=== PATIENT | female | born 1975 | race Two or more races ===

== ENCOUNTER 2017-04-29 12:09 | Emergency (ER) | payer SELFPAY ==
[2017-04-29] MEDS ORDERED: ONDANSETRON 4 MG/2 ML VIAL IVP ONE (12:34)
--- NOTE | 2017-04-29 12:34 | EDPHY ---
H & P Time Seen by Provider: 04/29/17 12:23 HPI/ROS: CHIEF COMPLAINT: Headache, vomiting HISTORY OF PRESENT ILLNESS: The patient is a 42-year-old female with a history of migraines to the emergency department with ongoing headache. Her symptoms started 3 days ago. They have been persistent. This is typical of her migraine headaches. She describes diffuse pain. It is moderate to severe. It is exacerbated by light and noise. No episodes of nausea and vomiting. She denies any focal weakness or numbness. No recent trauma. She has taken ibuprofen for pain. Patient states that her blood pressure has been slightly elevated over the past 2 weeks. REVIEW OF SYSTEMS: My complete review of systems is negative except as mentioned in the HPI. Past Medical/Surgical History: Includes migraines social history Social history: The patient does not smoke. Smoking Status: Never smoked Physical Exam: Vitals noted GENERAL: Mild acute distress, alert. HEENT: Eyes normal to inspection, normal pharynx, no signs of dehydration. NECK: No thyromegaly, no lymphadenopathy, supple. RESPIRATORY: Clear to auscultation bilaterally, no rales, rhonchi or wheezing. CVS: Regular rate and rhythm, no rubs, murmurs, or gallops. ABDOMEN: Soft, nontender, nondistended, no organomegaly. BACK: Normal to inspection, no CVA tenderness. SKIN: Normal color, no rash, warm, dry. No pallor. EXTREMITIES: No pedal edema, no calf tenderness, no Homans sign or cords, no joint swelling. NEURO/PSYCH: Higher functions: Alert and Oriented x3. Normal speech and cognition. Normal mood and affect. Cranial nerves: Normal as tested. Cerebellar: Normal as tested. Good finger to nose, good [id number], normal gait. Peripheral exam: Normal motor exam. Normal sensation. Normal reflexes. Constitutional: Initial Vital Signs Temperature (C) 36.6 C 04/29/17 12:13 Heart Rate 82 04/29/17 12:13 Respiratory Rate 17 04/29/17 12:13 Blood Pressure 148/92 H 04/29/17 12:13 O2 Sat (%) 97 04/29/17 12:13 O2 Delivery Mode Room Air Allergies/Adverse Reactions: No Known Allergies Allergy (Unverified 04/29/17 12:12) Home Medications: Medication Instructions Recorded AMOXICILLIN 04/29/17 Hydrocodone/APAP 5/325 [[place] 1 - 2 tab PO Q4 #13 tab 04/29/17 5/325 (RX)] Omeprazole 04/29/17 Ondansetron Odt [Zofran Odt 4 mg 4 mg PO Q4PRN PRN #7 tab 04/29/17 (*)] Medical Decision Making - Diagnostics Imaging Results: Imaging Impressions Head CT 04/29/17 13:07 Impression: 1. No significant intracranial abnormality seen. If symptoms worsen, additional imaging may be necessary. Findings discussed with Ayana Chavez M.D. at 13:35 hour, 04/29/2017. ED Course/Re-evaluation: Emergency department I discussed possible etiologies with the patient. I answered all her questions. IV was placed. Patient was given Solu-Medrol 125 mg IV, fentanyl 50 mcg IV and Zofran 4 mg IV. On recheck the patient states her pain is improved. She still is feeling nauseated and dizzy. She was given Reglan [address]: Please refer the dictated report. No acute disease noted. I discussed the result with the patient. 1413: I rechecked the patient. She had no complaints. Her headache is completely gone. She has no focal neurologic deficits. I gave the patient warnings prior to leaving. She will return with worsening symptoms. Differential Diagnosis: My differential includes but is not limited to migraine, ischemic CVA, hemorrhagic CVA, dissection, aneurysm - Data Points Medications Given: Discontinued Medications Fentanyl (Sublimaze) 50 mcg IVP EDNOW ONE Stop: 04/29/17 12:36 Last Admin: 04/29/17 12:43 Dose: 50 mcg Methylprednisolone Sodium Succinate (Solu-Medrol) 125 mg IVP EDNOW ONE Stop: 04/29/17 12:36 Last Admin: 04/29/17 12:42 Dose: 125 mg Metoclopramide HCl (Reglan Injection) 10 mg IVP EDNOW ONE Stop: 04/29/17 13:08 Last Admin: 04/29/17 13:11 Dose: 10 mg Ondansetron HCl (Zofran) 4 mg IVP EDNOW ONE Stop: 04/29/17 12:35 Last Admin: 04/29/17 12:43 Dose: 4 mg Departure - Departure Disposition: Home, Routine, Self-Care Clinical Impression: Dizziness Headache Qualifiers: Headache type: unspecified Headache chronicity pattern: acute headache Intractability: not intractable Qualified Code(s): R51 - Headache Condition: Good Instructions: Acute Headache (ED) Additional Instructions: Return with increasing headache, weakness, numbness, repeated vomiting, fever or any other concerns. Referrals: [facility] [Other] - 1-2 days without fail Prescriptions: Hydrocodone/APAP 5/325 [[place] 5/325 (RX)] 1 - 2 tab PO Q4 #13 tab Ondansetron Odt [Zofran Odt 4 mg (*)] 4 mg PO Q4PRN PRN #7 tab PRN Reason: For Nausea & Vomiting
[2017-04-29] MEDS ORDERED: fentaNYL 100 MCG/2 ML INJ IVP ONE (12:35)
[2017-04-29] MEDS ORDERED: methylPREDNISolone SOD SUCC 125 MG/2 ML VIAL IVP ONE (12:35)
[2017-04-29] MEDS ORDERED: METOCLOPRAMIDE 10 MG/2 ML VIAL IVP ONE (13:07)
[2017-04-29 14:26] VITALS: BP 129/72; PULSE 74; RESP 16; TEMP 97.7; O2SAT 93
== END 2017-04-29 14:25 | disposition home or self-care (01) ==
DX: R51 Headache (principal); R42 Dizziness and giddiness
CPT/HCPCS: 96374; J2405; J2765; J3010

== ENCOUNTER 2018-05-01 17:39 | Emergency (ER) | payer SELFPAY ==
[2018-05-01] MEDS ORDERED: ACETAMINOPHEN 500 MG TAB PO ONE (18:34)
--- NOTE | 2018-05-01 18:48 | EDPHY ---
H & P Stated Complaint: ST/FEVER Time Seen by Provider: 05/01/18 18:48 HPI/ROS: CHIEF COMPLAINT: Sore throat, fever, chills HISTORY OF PRESENT ILLNESS: The patient presents the ED with a one-week history of sore throat, fever and chills. The patient complains of a mild frontal headache. She denies any neck stiffness. She does complain of generalized myalgias. The patient reports associated nausea. She denies any vomiting or diarrhea. The patient has no significant past medical history. REVIEW OF SYSTEMS: A comprehensive 10 point review of systems is otherwise negative aside from elements mentioned in the history of present illness. Source: Patient, Family Exam Limitations: No limitations - Personal History LMP (Females 10-55): Irregular Current Tetanus Diphtheria and Acellular Pertussis (TDAP): Yes - Medical/Surgical History Hx Asthma: No Hx Chronic Respiratory Disease: No Hx Diabetes: No Hx Cardiac Disease: No Hx Renal Disease: No Hx Cirrhosis: No Hx Alcoholism: No Hx HIV/AIDS: No Hx Splenectomy or Spleen Trauma: No Other PMH: MIGRAINES/THROAT - Social History Smoking Status: Never smoked - Physical Exam Exam: General Appearance: Alert, no distress Eyes: Pupils equal and round no pallor or injection ENT, Mouth: Minimal pharyngeal erythema, no tonsillar exudate or swelling Respiratory: There are no retractions, lungs are clear to auscultation Cardiovascular: Regular rate and rhythm Gastrointestinal: Abdomen is soft and nontender, no masses, bowel sounds normal Neurological: A&O, normal motor function, normal sensory exam, normal cranial nerves Skin: Warm and dry, no rashes Musculoskeletal: Neck is supple nontender Extremities: symmetrical, full range of motion Constitutional: Initial Vital Signs Temperature (C) 38.3 C 05/01/18 17:44 Heart Rate 102 H 05/01/18 17:44 Respiratory Rate 16 05/01/18 17:44 Blood Pressure 159/97 H 05/01/18 17:44 O2 Sat (%) 94 05/01/18 17:44 O2 Delivery Mode Room Air Allergies/Adverse Reactions: No Known Allergies Allergy (Verified 05/01/18 17:43) Home Medications: Medication Instructions Recorded Lisinopril 05/01/18 Loratadine 05/01/18 Medical Decision Making ED Course/Re-evaluation: The patient presents to the ED with a viral syndrome which has been present for the past week. The patient is nontoxic and well-appearing. She has no clinical evidence of meningitis. Lungs are clear to auscultation bilaterally without clinical findings suggestive of pneumonia. The patient had an IV established. She received a L of normal saline. She received IV Toradol. Patient's laboratory studies do demonstrate a mild leukocytosis. The remainder of the patient's metabolic panel is unremarkable. The patient's strep test is negative. I re-evaluated the patient at 8:00 p.m.. I have encouraged her to continue to use ibuprofen 600 mg 3 times a day for management of her symptoms. The patient is advised to rest take Tylenol. She will be discharged home with customary aftercare instructions and return precautions. History, physical discharge instructions with the help of the newspaper correspondent. Differential Diagnosis: Differential diagnosis considered includes viral syndrome, strep pharyngitis, meningitis, pneumonia - Data Points Laboratory Results: Laboratory Results 05/01/18 19:14 05/01/18 19:14 05/01/18 05/01/18 05/01/18 Unknown 19:14 19:14 WBC 14.39 10^3/uL H 10^3/uL (3.80-9.50) RBC 5.20 10^6/uL 10^6/uL (4.18-5.33) Hgb 13.7 g/dL g/dL (12.6-16.3) Hct 40.4 % % (38.0-47.0) MCV 77.7 fL L fL (81.5-99.8) MCH 26.3 pg L pg (27.9-34.1) MCHC 33.9 g/dL g/dL (32.4-36.7) RDW 12.8 % % (11.5-15.2) Plt Count 239 10^3/uL 10^3/uL (150-400) MPV 10.2 fL fL (8.7-11.7) Neut % (Auto) 83.1 % H % (39.3-74.2) Lymph % (Auto) 11.1 % L % (15.0-45.0) [place] % (Auto) 5.1 % % (4.5-13.0) Eos % (Auto) 0.1 % L % (0.6-7.6) Baso % (Auto) 0.3 % % (0.3-1.7) Nucleat RBC Rel Count 0.0 % % (0.0-0.2) Absolute Neuts (auto) 11.95 10^3/uL H 10^3/uL (1.70-6.50) Absolute Lymphs (auto) 1.60 10^3/uL 10^3/uL (1.00-3.00) Absolute Monos (auto) 0.74 10^3/uL 10^3/uL (0.30-0.80) Absolute Eos (auto) 0.01 10^3/uL L 10^3/uL (0.03-0.40) Absolute Basos (auto) 0.04 10^3/uL 10^3/uL (0.02-0.10) Absolute Nucleated RBC 0.00 10^3/uL 10^3/uL (0-0.01) Immature Gran % 0.3 % % (0.0-1.1) Immature Gran # 0.05 10^3/uL 10^3/uL (0.00-0.10) Sodium 134 mEq/L L mEq/L (135-145) Potassium 3.6 mEq/L mEq/L (3.3-5.0) Chloride 102 mEq/L mEq/L (97-110) Carbon Dioxide 23 mEq/l mEq/l (22-31) Anion Gap 9 mEq/L mEq/L (8-16) BUN 3 mg/dL L mg/dL (7-23) Creatinine 0.5 mg/dL L mg/dL (0.6-1.0) Estimated GFR > 60 Glucose 106 mg/dL H mg/dL (70-100) Calcium 9.0 mg/dL mg/dL (8.5-10.4) Total Bilirubin 0.7 mg/dL mg/dL (0.1-1.4) Conjugated Bilirubin 0.2 mg/dL mg/dL (0.0-0.5) Unconjugated Bilirubin 0.5 mg/dL mg/dL (0.0-1.1) AST 13 IU/L L IU/L (14-46) ALT 24 IU/L IU/L (9-52) Alkaline Phosphatase 92 IU/L IU/L (38-126) Total Protein 6.8 g/dL g/dL (6.3-8.2) Albumin 3.9 g/dL g/dL (3.5-5.0) Lipase 18 IU/L L IU/L (23-300) Group A Strep Screen Group A Strep DNA Pending 05/01/18 17:45 WBC RBC Hgb Hct MCV MCH MCHC RDW Plt Count MPV Neut % (Auto) Lymph % (Auto) [place] % (Auto) Eos % (Auto) Baso % (Auto) Nucleat RBC Rel Count Absolute Neuts (auto) Absolute Lymphs (auto) Absolute Monos (auto) Absolute Eos (auto) Absolute Basos (auto) Absolute Nucleated RBC Immature Gran % Immature Gran # Sodium Potassium Chloride Carbon Dioxide Anion Gap BUN Creatinine Estimated GFR Glucose Calcium Total Bilirubin Conjugated Bilirubin Unconjugated Bilirubin AST ALT Alkaline Phosphatase Total Protein Albumin Lipase Group A Strep Screen NEGATIVE (NEGATIVE) Group A Strep DNA Medications Given: Discontinued Medications Acetaminophen (Tylenol) 1,000 mg PO EDNOW ONE Stop: 05/01/18 18:35 Last Admin: 05/01/18 18:36 Dose: 1,000 mg Sodium Chloride (Ns) 1,000 mls @ 0 mls/hr IV EDNOW ONE; Wide Open PRN Reason: Protocol Stop: 05/01/18 18:58 Last Admin: 05/01/18 19:15 Dose: 1,000 mls Ketorolac Tromethamine (Toradol) 30 mg IVP EDNOW ONE Stop: 05/01/18 18:58 Last Admin: 05/01/18 19:16 Dose: 30 mg Departure - Departure Disposition: Home, Routine, Self-Care Clinical Impression: Viral syndrome Condition: Good Instructions: Viral Syndrome (ED) Additional Instructions: 1. Zofran as needed for nausea. 2. Take Ibuprofen or Motrin 600 mg by mouth three times a day. 3. [place] for severe discomfort 4. Please schedule a follow-up appointment with your primary care provider in the next 1-2 days. 5. Please return to the ED for markedly worsening symptoms or other concerns. Referrals: [facility],. [Clinic] - As per Instructions
[2018-05-01] MEDS ORDERED: KETOROLAC 30 MG/1 ML SDV IVP ONE (18:57)
[2018-05-01] MEDS ORDERED: NS 1,000 ML IV ONE (18:57)
[2018-05-01 19:45] LABS: PLATELET COUNT 239 10^3/uL (150-400)
[2018-05-01 20:14] VITALS: BP 118/75
== END 2018-05-01 20:12 | disposition home or self-care (01) ==
DX: B34.9 Viral infection, unspecified (principal)
CPT/HCPCS: 96374; J1885